=== PATIENT | female | born 1990 | race American Indian/Alaskan Native ===

== ENCOUNTER 2017-02-09 09:44 | Emergency (ER) | payer MEDICAID ==
[2017-02-09 09:55] VITALS: BP 149/78
[2017-02-09] MEDS ORDERED: TETRACAINE 0.5% OU ONE (10:44)
[2017-02-09] MEDS ORDERED: FUL-GLO OP ONE (10:44)
[2017-02-09] MEDS ORDERED: NORCO 5/325 PO ONE (11:01)
--- NOTE | 2017-02-09 13:04 | Emergency Department Report ---
Entered by DAYRON OCONNOR, acting as scribe for CHELITA HUIZAR NP. ED Eye Problem HPI - General Chief complaint: Eye Problems Stated complaint: POSS PINK EYE/BOTH EYES/HEADACHE Time Seen by Provider: 02/09/17 10:43 Source: patient Mode of arrival: Ambulatory Limitations: No Limitations - History of Present Illness Initial comments: 26 y/o female with no significant PMHx c/o right eye redness that began 1 week ago. Patient states that she was at home during onset of symptoms. Patient states her right eye is aggravated with light exposure and alleviated with darkness. Patient reports associated symptoms right eye blurry vision, watery discharge, bilateral "heavy" eye pain, rhinorrhea, and headache, but she denies any eye injury/trauma, nausea, vomiting, fever, and chills. Rates pain a 7/10 in severity. Patient states that she took out her disposable, prescribed contacts out 2 days ago, which she had in for 4 weeks. Patient states the contacts she wears usually lasts for 2 weeks and she is able to sleep in them. She works at a warehouse, but she denies any injuries or foreign substances getting into her eyes. Patient states that the eye redness radiated back and forth from right eye to left eye over the past week, but the left eye redness was relieved with OTC eye drops. Allergic to iodine. MD chief complaint: eye pain (bilaterally), eye redness (right), vision change ( blurry right eye vision) Onset/Timin -: week(s) Onset Description: unknown Location: right eye, left eye Place: home If Injury: none Eye Symptoms: redness, pain, discharge (watery), blurry vision (right eye) Severity: moderate Severity scale (0 -10): 7 If Pain, Quality: other (heavy) Consistency: constant Associated Symptoms: headache, rhinorrhea. denies: neck pain, nausea/vomiting, cough, fever, shortness of breath Treatments Prior to Arrival: OTC eye drops - Related Data Patient Tetanus UTD: Yes Previous Rx's Medication Instructions Recorded Last Taken Type Ibuprofen [Motrin 600 MG tab] 600 mg PO Q8H PRN #30 tablet 10/06/16 Unknown Rx Multivitamin with Iron 1 each PO DAILY #30 tablet 10/06/16 Unknown Rx [Multivitamins with Iron] oxyCODONE /ACETAMINOPHEN [Percocet 1 tab PO Q6HR PRN #30 tablet 10/06/16 Unknown Rx 5/325] Acetaminophen/Codeine [Tylenol #3] 1 tab PO Q6H PRN #12 tab 02/09/17 Unknown Rx Erythromycin [Erythromycin Ophth 1 cm OU QID 7 Days 02/09/17 Unknown Rx Oint] Ibuprofen [Motrin] 600 mg PO Q8H PRN #15 tablet 02/09/17 Unknown Rx Allergies Allergy/AdvReac Type Severity Reaction Status Date / Time iodine Allergy Hives Verified 10/06/16 12:37 ED Review of Systems Comment: All other systems reviewed and negative Constitutional: denies: chills, fever, weakness Eyes: eye pain (bilaterally), eye discharge (watery right eye), vision change ( blurry right eye vision) ENT: other (rhinorrhea) Respiratory: denies: cough, orthopnea, shortness of breath, wheezing Cardiovascular: denies: chest pain, palpitations Gastrointestinal: denies: abdominal pain, nausea, vomiting Musculoskeletal: denies: back pain, joint swelling, arthralgia, myalgia Skin: denies: rash, lesions Neurological: headache. denies: weakness, numbness ED Past Medical Hx - Past Medical History Previous Medical History?: No Hx Hypertension: No Hx Congestive Heart Failure: No Hx Diabetes: No Hx Deep Vein Thrombosis: No Hx Renal Disease: No Hx Sickle Cell Disease: No Hx Seizures: No Hx Asthma: No Hx HIV: No - Surgical History Past Surgical History?: Yes Additional Surgical History: - Social History Smoking Status: Former Smoker Substance Use Type: None - Medications Home Medications: Home Medications Medication Instructions Recorded Confirmed Last Taken Type Ibuprofen [Motrin 600 MG tab] 600 mg PO Q8H PRN #30 tablet 10/06/16 Unknown Rx Multivitamin with Iron 1 each PO DAILY #30 tablet 10/06/16 Unknown Rx [Multivitamins with Iron] oxyCODONE /ACETAMINOPHEN [Percocet 1 tab PO Q6HR PRN #30 tablet 10/06/16 Unknown Rx 5/325] Acetaminophen/Codeine [Tylenol #3] 1 tab PO Q6H PRN #12 tab 02/09/17 Unknown Rx Erythromycin [Erythromycin Ophth 1 cm OU QID 7 Days 02/09/17 Unknown Rx Oint] Ibuprofen [Motrin] 600 mg PO Q8H PRN #15 tablet 02/09/17 Unknown Rx ED Physical Exam - General Limitations: No Limitations General appearance: alert, in no apparent distress, obese - Head Head exam: Present: atraumatic, normocephalic - Eye Eye exam: Present: PERRL, EOMI, conjunctival injection (R ), other (2 corneal abrasions over the right pupil and 1 corneal abrasion to left eye at 5 o'clock in position). Absent: nystagmus Pupils: Present: normal accommodation - Expanded Eye Exam Expanded Pupils: Regular, Round: Bilateral Sclera/Conjunctival: Injection: Right Visual acuity (R) = 20/: 20 Visual acuity (L) = 20/: 40 With correction: Yes - ENT ENT exam: Present: normal exam, mucous membranes moist, normal external ear exam - Neck Neck exam: Present: normal inspection, full ROM. Absent: tenderness, lymphadenopathy - Respiratory Respiratory exam: Present: normal lung sounds bilaterally. Absent: respiratory distress, wheezes, rales, rhonchi, stridor - Cardiovascular Cardiovascular Exam: Present: regular rate, normal rhythm. Absent: systolic murmur, diastolic murmur, rubs, gallop - GI/Abdominal GI/Abdominal exam: Present: soft, normal bowel sounds - Extremities Exam Extremities exam: Present: normal inspection, full ROM - Back Exam Back exam: Present: normal inspection - Neurological Exam Neurological exam: Present: alert, oriented X3 - Psychiatric Psychiatric exam: Present: normal affect, normal mood - Skin Skin exam: Present: warm, dry, intact. Absent: rash ED Course Vital Signs 02/09/17 09:48 Temperature 98.2 F Pulse Rate 85 Respiratory 16 Rate Blood Pressure 149/78 O2 Sat by Pulse 98 Oximetry - Reevaluation(s) Reevaluation #1: 02/09/17 12:44 PT aware of abnormal findings on wood's lamp exam and need for close follow up with her eye doctor. PT advised not to wear contacts at this time. PT verbalizes understanding. - Eye Procedure Alcaine Drops Administered: Yes Eye FB Removal: other (no fb seen ) Progress: zee eyes examined s/p tetracaine instilled and fluorescine placement, pt has zee corneal abrasions, no fb seen - Pulse Oximetry Interpretation Digit-Finger Initial Pulse Oximetry Readin Actions Taken: none ED Medical Decision Making - Differential Diagnosis conjunctivitis, corneal abrasion Critical Care Time: No ED Disposition Clinical Impression: Corneal abrasion of both eyes Qualifiers: Encounter type: initial encounter Qualified Code(s): S05.01XA - Injury of conjunctiva and corneal abrasion without foreign body, right eye, initial encounter; S05.02XA - Injury of conjunctiva and corneal abrasion without foreign body, left eye, initial encounter Disposition: TO HOME OR SELFCARE Is pt being admited?: No Does the pt Need Aspirin: No Condition: Stable Instructions: Corneal Abrasion (ED) Additional Instructions: no driving or ETOH after taking Tylenol #3 Follow up with your eye doctor in the next 2-3 days Follow up with PCP for bp recheck in the next 3-5 days Prescriptions: Acetaminophen/Codeine [Tylenol #3] 1 tab PO Q6H PRN #12 tab PRN Reason: Pain , Severe (7-10) Erythromycin [Erythromycin Ophth Oint] 1 cm OU QID 7 Days Ibuprofen [Motrin] 600 mg PO Q8H PRN #15 tablet PRN Reason: Pain Referrals: [facility] [Outside] - 3-5 Days ONEYDA RICCI MD [Staff Physician] - 3-5 Days [facility], [Primary Care Provider] - 3-5 Days BRIAN HADDAD MD [Staff Physician] - 3-5 Days Forms: Work/School Release Form(ED) Time of Disposition: 12:52 This documentation as recorded by the ANASTASIA fischer JASMINE,accurately reflects the service I personally performed and the decisions made by ,CHELITA HUIZAR, MARIA EUGENIA.
== END 2017-02-09 13:09 | disposition home or self-care (01) ==
LOC: ED 09:44
DX: S05.02XA Injury of conjunctiva and corneal abrasion without foreign body, left eye, initial encounter (principal); S05.01XA Injury of conjunctiva and corneal abrasion without foreign body, right eye, initial encounter; Z98.890 Other specified postprocedural states; Z87.891 Personal history of nicotine dependence; Z91.041 Radiographic dye allergy status; X58.XXXA Exposure to other specified factors, initial encounter; Y93.89 Activity, other specified; Y99.8 Other external cause status; Y92.009 Unspecified place in unspecified non-institutional (private) residence as the place of occurrence of the external cause
CPT/HCPCS: 99283

== ENCOUNTER 2018-01-25 13:19 | Emergency (ER) | payer SELFPAY ==
[2018-01-25 14:22] VITALS: BP 142/67
[2018-01-25] MEDS ORDERED: VALIUM PO ONE (21:06)
[2018-01-25] MEDS ORDERED: TORADOL IM ONE (21:06)
--- NOTE | 2018-01-25 21:07 | Emergency Department Report ---
ED Neck Pain/Injury HPI - General Chief Complaint: Neck Pain/Injury Stated Complaint: NECK PAIN Time Seen by Provider: 01/25/18 20:24 Mode of arrival: Ambulatory Limitations: No Limitations - History of Present Illness Initial Comments: 27-year-old female past medical history obesity presents with complaint of pain and right side lateral neck which started earlier today. Patient states she was stretching and felt that she strained right upper neck muscle. Patient has felt stiffness in her neck. Denies fevers chills nausea vomiting headache blurry vision chest pain shortness of breath. Specifically feels worse when she palpates her right upper neck/shoulder region. Denies any swelling of skin or shoulder. She is ambulatory without assistance. Has not taken anything for the pain. States it is only worse when she turns her head to the right laterally or tilted to the right laterally. MD Complaint: neck pain - Related Data Previous Rx's Medication Instructions Recorded Last Taken Type Ibuprofen [Motrin 600 MG tab] 600 mg PO Q8H PRN #30 tablet 10/06/16 Unknown Rx Multivitamin with Iron 1 each PO DAILY #30 tablet 10/06/16 Unknown Rx [Multivitamins with Iron] oxyCODONE /ACETAMINOPHEN [Percocet 1 tab PO Q6HR PRN #30 tablet 10/06/16 Unknown Rx 5/325] Acetaminophen/Codeine [Tylenol #3] 1 tab PO Q6H PRN #12 tab 02/09/17 Unknown Rx Erythromycin [Erythromycin Ophth 1 cm OU QID 7 Days tube 02/09/17 Unknown Rx Oint] Ibuprofen [Motrin] 600 mg PO Q8H PRN #15 tablet 02/09/17 Unknown Rx Cyclobenzaprine [Flexeril] 10 mg PO TID PRN #12 tablet 01/25/18 Unknown Rx Ibuprofen [Motrin] 800 mg PO Q8HR PRN #25 tablet 01/25/18 Unknown Rx Allergies Allergy/AdvReac Type Severity Reaction Status Date / Time iodine Allergy Hives Verified 10/06/16 12:37 ED Review of Systems ROS: Stated complaint: NECK PAIN Other details as noted in HPI ED Past Medical Hx - Past Medical History Previous Medical History?: Yes Hx Hypertension: No Hx Congestive Heart Failure: No Hx Diabetes: No Hx Deep Vein Thrombosis: No Hx Renal Disease: No Hx Sickle Cell Disease: No Hx Seizures: No Hx Asthma: No Hx HIV: No Additional medical history: Vaginal dleivery x 2 - Surgical History Additional Surgical History: x 1 - Social History Smoking Status: Former Smoker Substance Use Type: Alcohol - Medications Home Medications: Home Medications Medication Instructions Recorded Confirmed Last Taken Type Ibuprofen [Motrin 600 MG tab] 600 mg PO Q8H PRN #30 tablet 10/06/16 Unknown Rx Multivitamin with Iron 1 each PO DAILY #30 tablet 10/06/16 Unknown Rx [Multivitamins with Iron] oxyCODONE /ACETAMINOPHEN [Percocet 1 tab PO Q6HR PRN #30 tablet 10/06/16 Unknown Rx 5/325] Acetaminophen/Codeine [Tylenol #3] 1 tab PO Q6H PRN #12 tab 02/09/17 Unknown Rx Erythromycin [Erythromycin Ophth 1 cm OU QID 7 Days tube 02/09/17 Unknown Rx Oint] Ibuprofen [Motrin] 600 mg PO Q8H PRN #15 tablet 02/09/17 Unknown Rx Cyclobenzaprine [Flexeril] 10 mg PO TID PRN #12 tablet 01/25/18 Unknown Rx Ibuprofen [Motrin] 800 mg PO Q8HR PRN #25 tablet 01/25/18 Unknown Rx ED Physical Exam - General Limitations: No Limitations General appearance: alert, in no apparent distress - Head Head exam: Present: atraumatic, normocephalic - Eye Eye exam: Present: normal appearance, PERRL, EOMI - ENT ENT exam: Present: mucous membranes moist - Neck Neck exam: Present: normal inspection, tenderness (light right upper trapezius discomfort), full ROM (neck flexion and extension is intact lateral rotation slightly limited to the right foot lateral rotation to the left) - Respiratory Respiratory exam: Present: normal lung sounds bilaterally. Absent: respiratory distress - Cardiovascular Cardiovascular Exam: Present: regular rate, normal rhythm. Absent: systolic murmur, diastolic murmur, rubs, gallop - GI/Abdominal GI/Abdominal exam: Present: soft, normal bowel sounds - Extremities Exam Extremities exam: Present: normal inspection - Expanded Upper Extremity Exam Right Shoulder Exam: Present: normal inspection, full ROM Upper Arm exam: Present: normal inspection, full ROM Elbow exam: Present: normal inspection, full ROM Forearm Wrist exam: Present: normal inspection, full ROM Hand Wrist exam: Present: normal inspection, full ROM Neuro motor exam: Present: wrist extension intact, thumb opposition intact, thumb adduction intact, fingers 2-5 abduction intact Neurosensory exam: Present: 2-point discrimination, ulnar nerve intact, median nerve intact Vascular: Present: normal capillary refill, radial pulse, brachial pulse, ulnar pulse - Back Exam Back exam: Present: normal inspection - Neurological Exam Neurological exam: Present: alert, oriented X3, CN II-XII intact, normal gait - Expanded Neurological Exam Expanded Patient oriented to: Present: person, place, time Cranial nerves: EOM's Intact: Normal, Facial Sensation: Normal Cerebellar function: Finger to Nose: Normal, Heel to Mas: Normal, Romberg: Normal Sensory exam: Upper Extremity Light Touch: Normal, Lower Extremity Light Touch: Normal Motor strength exam: RUE: 5, LUE: 5, RLE: 5, LLE: 5 Best Eye Response ([place]): (4) open spontaneously Best Motor Response ([place]): (6) obeys commands Best Verbal Response ([place]): (5) oriented [place] Total: 15 - Psychiatric Psychiatric exam: Present: normal affect, normal mood - Skin Skin exam: Present: warm, dry, intact, normal color. Absent: rash ED Course Vital Signs 01/25/18 01/25/18 14:15 21:16 Temperature 98.1 F Pulse Rate 73 Respiratory 22 18 Rate Blood Pressure 142/67 O2 Sat by Pulse 98 Oximetry ED Medical Decision Making - Medical Decision Making A/P: Torticollis, right upper trapezius sprain 1-no bruit on carotid auscultation, no neurological deficits on exam. X-ray unremarkable. No meningismus no photophobia phonophobia 2-vital signs within normal limits 3-patient feels better with muscle relaxants and anti-inflammatories. Range of motion is preserved 4- f/u primary care doctor Critical care attestation.: If time is entered above; I have spent that time in minutes in the direct care of this critically ill patient, excluding procedure time. ED Disposition Clinical Impression: Neck sprain Qualifiers: Encounter type: initial encounter Qualified Code(s): S13.9XXA - Sprain of joints and ligaments of unspecified parts of neck, initial encounter Disposition: TO HOME OR SELFCARE Is pt being admited?: No Does the pt Need Aspirin: No Condition: Stable Instructions: Spasmodic Torticollis (ED), Cervical Sprain (ED), Muscle Spasm ( ED) Prescriptions: Cyclobenzaprine [Flexeril] 10 mg PO TID PRN #12 tablet PRN Reason: Muscle Spasm Ibuprofen [Motrin] 800 mg PO Q8HR PRN #25 tablet PRN Reason: Pain Referrals: [facility] [Provider Group] - 3-5 Days Forms: Work/School Release Form(ED) Time of Disposition: 23:12
--- NOTE | 2018-01-25 21:45 | XRay Report ---
FINAL REPORT PROCEDURE: XR SPINE CERVICAL 2-3V TECHNIQUE: Cervical spine radiographs, AP and lateral projections. CPT 55074 HISTORY: neck pain COMPARISON: No prior studies are available for comparison. FINDINGS: C7 and T1 are not well visualized. Prevertebral soft tissues: Normal. Alignment: There straightening of the cervical spine.. Vertebral body heights/Disk spaces: Normal. Fracture(s): None. Facets: Normal. Bone mineralization: Normal. IMPRESSION: Straightening of the cervical spine is most likely secondary to spasm. C7 and T1 are not well visualized. Rest of the spine is otherwise unremarkable.
[2018-01-25] MEDS ORDERED: NORCO 10/325 PO ONE (22:41)
[2018-01-25] MEDS ORDERED: NORCO 5/325 PO ONE (22:41)
== END 2018-01-25 23:23 | disposition home or self-care (01) ==
LOC: ED 13:19
DX: S13.9XXA Sprain of joints and ligaments of unspecified parts of neck, initial encounter (principal); Z87.891 Personal history of nicotine dependence; Z91.041 Radiographic dye allergy status; X58.XXXA Exposure to other specified factors, initial encounter; Y93.89 Activity, other specified; Y99.8 Other external cause status; Y92.89 Other specified places as the place of occurrence of the external cause
CPT/HCPCS: 72040; 96372; 99283; J1885

== ENCOUNTER 2019-01-21 22:28 | Emergency (ER) | payer SELFPAY ==
[2019-01-21 22:37] VITALS: BP 149/65
--- NOTE | 2019-01-21 22:40 | Emergency Department Report ---
Blank Doc - Documentation Documentation: 28 y o female presents to Ed cc of itching and burning rash to neck and chest x 2 weeks states rash is getting worse and she has tried creams with no relief ACC jagdeepal
[2019-01-21] MEDS ORDERED: BENADRYL PO ONE (22:51)
[2019-01-21] MEDS ORDERED: DECADRON IM ONE (22:51)
[2019-01-21] MEDS ORDERED: PEPCID PO ONE (22:51)
--- NOTE | 2019-01-21 22:54 | Emergency Department Report ---
ED Rash HPI - HPI Chief Complaint: Skin Rash Stated Complaint: RASH ON NECK Time Seen by Provider: 01/21/19 22:33 Location: Neck Suspected Cause: Unknown Rash Symptoms: Yes Itching, No Facial Swelling, No Tongue/Oral Swelling, No Breathing Difficulties, No Choking Sensation, No Wheezing/Dyspnea, No Peeling, No Blistering, No Fever, No Lightheaded, No Malaise, No Myalgias Severity: mild Other History: She is a 28-year-old -[place] female who comes in with a rash on her anterior chest for several weeks. She has not been able to identify anything that is making it better or worse. It is nonspecific rash difficult to differentiate given the topicals and [id number] meds she's been using. It crosses midline and appears to be distributed in an area where folds of obesity would play a role. She is afebrile with no systemic symptoms. She states that it itches. There are no open areas or infectious appearing areas ED Review of Systems ROS: Stated complaint: RASH ON NECK Other details as noted in HPI Comment: All other systems reviewed and negative ED Past Medical Hx - Past Medical History Hx Hypertension: No Hx Congestive Heart Failure: No Hx Diabetes: No Hx Deep Vein Thrombosis: No Hx Renal Disease: No Hx Sickle Cell Disease: No Hx Seizures: No Hx Asthma: No Hx HIV: No Additional medical history: Vaginal dleivery x 2 - Surgical History Additional Surgical History: x 1 - Social History Smoking Status: Former Smoker Substance Use Type: Alcohol - Medications Home Medications: Home Medications Medication Instructions Recorded Confirmed Last Taken Type Ibuprofen [Motrin 600 MG tab] 600 mg PO Q8H PRN #30 tablet 10/06/16 Unknown Rx Multivitamin with Iron 1 each PO DAILY #30 tablet 10/06/16 Unknown Rx [Multivitamins with Iron] oxyCODONE /ACETAMINOPHEN [Percocet 1 tab PO Q6HR PRN #30 tablet 10/06/16 Unknown Rx 5/325] Acetaminophen/Codeine [Tylenol #3] 1 tab PO Q6H PRN #12 tab 02/09/17 Unknown Rx Erythromycin [Erythromycin Ophth 1 cm OU QID 7 Days tube 02/09/17 Unknown Rx Oint] Ibuprofen [Motrin] 600 mg PO Q8H PRN #15 tablet 02/09/17 Unknown Rx Cyclobenzaprine [Flexeril] 10 mg PO TID PRN #12 tablet 01/25/18 Unknown Rx Ibuprofen [Motrin] 800 mg PO Q8HR PRN #25 tablet 01/25/18 Unknown Rx Cetirizine HCl [ZyrTEC] 10 mg PO DAILY #30 capsule 01/21/19 Unknown Rx diphenhydrAMINE [Benadryl CAP] 25 mg PO Q8HR PRN #20 capsule 01/21/19 Unknown Rx predniSONE [Deltasone] 20 mg PO DAILY #5 tablet 01/21/19 Unknown Rx Rash Exam - Exam General: Vital signs noted. No distress. Alert and acting appropriately. HEENT: No Periorbital Edema, No Conjuctival Injection Lungs: Yes Good Air Exchange, No Wheezes Heart: Yes Regular, No Murmur Skin: Yes Maculopapular Rash, No Urticarial Rash Other: Positive: Abdomen Normal, Neurologic Normal, Musculoskeletal Normal ED Course Vital Signs 01/21/19 22:35 Temperature 98.3 F Pulse Rate 86 Respiratory 18 Rate Blood Pressure 149/65 O2 Sat by Pulse 98 Oximetry ED Medical Decision Making - Medical Decision Making SIMPLE RASH NO FEVER ABC INTACT HAS HAD FOR WEEKS ITCHING OTC MEDS NOT WORKING TO SOOTHE NO SYSTEMIC SYMPTOMS DISCUSSED DERM MD WITH PT FOR DEFINITIVE DIAGNOSIS Vital Signs 01/21/19 22:35 Temperature 98.3 F Pulse Rate 86 Respiratory 18 Rate Blood Pressure 149/65 O2 Sat by Pulse 98 Oximetry Critical care attestation.: If time is entered above; I have spent that time in minutes in the direct care of this critically ill patient, excluding procedure time. ED Disposition Clinical Impression: Rash and nonspecific skin eruption Disposition: DC-01 TO HOME OR SELFCARE Is pt being admited?: No Does the pt Need Aspirin: No Condition: Stable Instructions: Acute Rash (ED) Additional Instructions: DIET TOLERATED MEDS ORDERED TODAY IN ER FOLLOW INSTRUCTIONS ON THE BOTTLE FOLLOW UP PCP WITHIN 48 HOURS TO ENSURE YOU ARE GETTING BETTER ACTIVITY TOLERATED MOTRIN OR TYLENOL FOR PAIN OR FEVER RETURN TO THE ER FOR WORSENING SYMPTOMS NOT RELIEVED BY YOUR MEDICATIONS. Prescriptions: diphenhydrAMINE [Benadryl CAP] 25 mg PO Q8HR PRN #20 capsule PRN Reason: Itching predniSONE [Deltasone] 20 mg PO DAILY #5 tablet Cetirizine HCl [ZyrTEC] 10 mg PO DAILY #30 capsule Referrals: PRAFUL TELLES MD [Referring] - 3-5 Days Time of Disposition: 22:52
== END 2019-01-21 23:31 | disposition home or self-care (01) ==
LOC: ED 22:28
DX: R21 Rash and other nonspecific skin eruption (principal); Z87.891 Personal history of nicotine dependence; Z91.041 Radiographic dye allergy status
CPT/HCPCS: 96372; 99282; J1100

== ENCOUNTER 2019-01-25 18:07 | Emergency (ER) | payer SELFPAY ==
--- NOTE | 2019-01-25 19:33 | Emergency Department Report ---
ED ENT HPI - General Chief complaint: Dental/Oral Stated complaint: (L) SIDE EAR/TOOTH/FACE PAIN Time Seen by Provider: 01/25/19 19:29 Source: patient Mode of arrival: Ambulatory Limitations: No Limitations - History of Present Illness Initial comments: pt presents to the ED with c/o left sided dental pain that began two years ago intermittently. Pt has not seen a dentist in 5 years. Pt states she has known cavities and has had fillings fall out. pt denies any PMHx. Pt only allergy is to seafood. Pt has noticed mild edema to the left side of the face. Pt denies denies any fever. [facility] January 05. - Related Data Previous Rx's Medication Instructions Recorded Last Taken Type Ibuprofen [Motrin 600 MG tab] 600 mg PO Q8H PRN #30 tablet 10/06/16 Unknown Rx Multivitamin with Iron 1 each PO DAILY #30 tablet 10/06/16 Unknown Rx [Multivitamins with Iron] oxyCODONE /ACETAMINOPHEN [Percocet 1 tab PO Q6HR PRN #30 tablet 10/06/16 Unknown Rx 5/325] Erythromycin [Erythromycin Ophth 1 cm OU QID 7 Days tube 02/09/17 Unknown Rx Oint] Cyclobenzaprine [Flexeril] 10 mg PO TID PRN #12 tablet 01/25/18 Unknown Rx Ibuprofen [Motrin] 800 mg PO Q8HR PRN #25 tablet 01/25/18 Unknown Rx Cetirizine HCl [ZyrTEC] 10 mg PO DAILY #30 capsule 01/21/19 Unknown Rx diphenhydrAMINE [Benadryl CAP] 25 mg PO Q8HR PRN #20 capsule 01/21/19 Unknown Rx predniSONE [Deltasone] 20 mg PO DAILY #5 tablet 01/21/19 Unknown Rx Acetaminophen/Codeine [Tylenol 1 tab PO Q6H PRN #10 tab 01/25/19 Unknown Rx /Codeine # 3 tab] Ibuprofen [Motrin 600 MG tab] 600 mg PO Q8H PRN #15 tablet 01/25/19 Unknown Rx Penicillin Vk [Veetids TAB] 500 mg PO QID 7 Days #56 tablet 01/25/19 Unknown Rx Allergies Allergy/AdvReac Type Severity Reaction Status Date / Time iodine Allergy Hives Verified 01/25/19 18:11 ED Dental HPI - General Chief complaint: Dental/Oral Stated complaint: (L) SIDE EAR/TOOTH/FACE PAIN Time Seen by Provider: 01/25/19 19:29 Source: patient Mode of arrival: Ambulatory Limitations: No Limitations - Related Data Previous Rx's Medication Instructions Recorded Last Taken Type Ibuprofen [Motrin 600 MG tab] 600 mg PO Q8H PRN #30 tablet 10/06/16 Unknown Rx Multivitamin with Iron 1 each PO DAILY #30 tablet 10/06/16 Unknown Rx [Multivitamins with Iron] oxyCODONE /ACETAMINOPHEN [Percocet 1 tab PO Q6HR PRN #30 tablet 10/06/16 Unknown Rx 5/325] Erythromycin [Erythromycin Ophth 1 cm OU QID 7 Days tube 02/09/17 Unknown Rx Oint] Cyclobenzaprine [Flexeril] 10 mg PO TID PRN #12 tablet 01/25/18 Unknown Rx Ibuprofen [Motrin] 800 mg PO Q8HR PRN #25 tablet 01/25/18 Unknown Rx Cetirizine HCl [ZyrTEC] 10 mg PO DAILY #30 capsule 01/21/19 Unknown Rx diphenhydrAMINE [Benadryl CAP] 25 mg PO Q8HR PRN #20 capsule 01/21/19 Unknown Rx predniSONE [Deltasone] 20 mg PO DAILY #5 tablet 01/21/19 Unknown Rx Acetaminophen/Codeine [Tylenol 1 tab PO Q6H PRN #10 tab 01/25/19 Unknown Rx /Codeine # 3 tab] Ibuprofen [Motrin 600 MG tab] 600 mg PO Q8H PRN #15 tablet 01/25/19 Unknown Rx Penicillin Vk [Veetids TAB] 500 mg PO QID 7 Days #56 tablet 01/25/19 Unknown Rx Allergies Allergy/AdvReac Type Severity Reaction Status Date / Time iodine Allergy Hives Verified 01/25/19 18:11 ED Review of Systems ROS: Stated complaint: (L) SIDE EAR/TOOTH/FACE PAIN Other details as noted in HPI Comment: All other systems reviewed and negative ED Past Medical Hx - Past Medical History Hx Hypertension: No Hx Congestive Heart Failure: No Hx Diabetes: No Hx Deep Vein Thrombosis: No Hx Renal Disease: No Hx Sickle Cell Disease: No Hx Seizures: No Hx Asthma: No Hx HIV: No Additional medical history: Vaginal dleivery x 2 - Surgical History Additional Surgical History: x 1 - Social History Smoking Status: Never Smoker Substance Use Type: None - Medications Home Medications: Home Medications Medication Instructions Recorded Confirmed Last Taken Type Ibuprofen [Motrin 600 MG tab] 600 mg PO Q8H PRN #30 tablet 10/06/16 Unknown Rx Multivitamin with Iron 1 each PO DAILY #30 tablet 10/06/16 Unknown Rx [Multivitamins with Iron] oxyCODONE /ACETAMINOPHEN [Percocet 1 tab PO Q6HR PRN #30 tablet 10/06/16 Unknown Rx 5/325] Erythromycin [Erythromycin Ophth 1 cm OU QID 7 Days tube 02/09/17 Unknown Rx Oint] Cyclobenzaprine [Flexeril] 10 mg PO TID PRN #12 tablet 01/25/18 Unknown Rx Ibuprofen [Motrin] 800 mg PO Q8HR PRN #25 tablet 01/25/18 Unknown Rx Cetirizine HCl [ZyrTEC] 10 mg PO DAILY #30 capsule 01/21/19 Unknown Rx diphenhydrAMINE [Benadryl CAP] 25 mg PO Q8HR PRN #20 capsule 01/21/19 Unknown Rx predniSONE [Deltasone] 20 mg PO DAILY #5 tablet 01/21/19 Unknown Rx Acetaminophen/Codeine [Tylenol 1 tab PO Q6H PRN #10 tab 01/25/19 Unknown Rx /Codeine # 3 tab] Ibuprofen [Motrin 600 MG tab] 600 mg PO Q8H PRN #15 tablet 01/25/19 Unknown Rx Penicillin Vk [Veetids TAB] 500 mg PO QID 7 Days #56 tablet 01/25/19 Unknown Rx ED Physical Exam - General Limitations: No Limitations General appearance: alert, in no apparent distress - Head Head exam: Present: atraumatic, normocephalic - Eye Eye exam: Present: normal appearance, PERRL - ENT ENT exam: Present: normal orophraynx, mucous membranes moist, other (poor dentition, pt has partially cracked teeth on the left upper, left lower, and right upper, pt has necrotic tissue on the left upper, no obvious induration, fluctuance, or erythema of the gums, uvula is midline, no uvula edema) - Respiratory Respiratory exam: Absent: respiratory distress - Neurological Exam Neurological exam: Present: alert, oriented X3 - Psychiatric Psychiatric exam: Present: normal affect, normal mood - Skin Skin exam: Present: warm, dry, intact ED Course Vital Signs 01/25/19 19:30 Temperature 97.9 F Pulse Rate 66 Respiratory 18 Rate Blood Pressure 160/88 O2 Sat by Pulse 99 Oximetry ED Medical Decision Making - Medical Decision Making pt presents to the ED with c/o left sided dental pain that began two years ago intermittently. Pt has not seen a dentist in 5 years. Pt states she has known cavities and has had fillings fall out. pt denies any PMHx. Pt only allergy is to seafood. Pt has noticed mild edema to the left side of the face. Pt denies denies any fever. [facility] January 05. pt is afebrile, no tachycardia. on exam: poor dentition, pt has partially cracked teeth on the left upper, left lower, and right upper, pt has necrotic tissue on the left upper, no obvious induration, fluctuance, or erythema of the gums, uvula is midline, no uvula edema. no obvious dental abscess identified. pt given abx, pain medication, and anti- inflammatory. discussed to please take all medication as prescribed. please follow up with a dentist in the next 3-5 days. discussed with pt in detail the importance of following up with a dentist. advised to only take pain medication for severe pain and do not drive or operate heavy machinery while taking. return to the emergency room for any new or worsening symptoms. Critical care attestation.: If time is entered above; I have spent that time in minutes in the direct care of this critically ill patient, excluding procedure time. ED Disposition Clinical Impression: Infected dental caries Disposition: TO HOME OR SELFCARE Is pt being admited?: No Does the pt Need Aspirin: No Condition: Stable Instructions: Dental Caries (ED) Additional Instructions: Please take all medication as prescribed. please follow up with a dentist in the next 3-5 days. only take pain medication for severe pain and do not drive or operate heavy machinery while taking. return to the emergency room for any new or worsening symptoms. Prescriptions: Ibuprofen [Motrin 600 MG tab] 600 mg PO Q8H PRN #15 tablet PRN Reason: Pain Acetaminophen/Codeine [Tylenol /Codeine # 3 tab] 1 tab PO Q6H PRN #10 tab PRN Reason: Pain , Severe (7-10) Penicillin Vk [Veetids TAB] 500 mg PO QID 7 Days #56 tablet Referrals: a, dentist [Other] - 3-5 Days Time of Disposition: 19:35 Print Language: GIBRALTARIAN
[2019-01-25 19:34] VITALS: BP 160/88
== END 2019-01-25 20:15 | disposition home or self-care (01) ==
LOC: ED 18:07
DX: K04.7 Periapical abscess without sinus (principal); Z88.8 Allergy status to other drugs, medicaments and biological substances
CPT/HCPCS: 99282

== ENCOUNTER 2019-03-05 04:50 | Emergency (ER) | payer SELFPAY ==
[2019-03-05 05:00] VITALS: BP 138/83
--- NOTE | 2019-03-05 05:26 | XRay Report ---
RIGHT ANKLE, 3 VIEWS 03/05/2019 INDICATION / CLINICAL INFORMATION: pain and swelling to ankle. COMPARISON: None available. FINDINGS: No fracture or dislocation. Signer Name: Ivan Rodgers MD Signed: 03/05/2019 5:21 AM Workstation Name: [id number]
[2019-03-05] MEDS ORDERED: IBUPROFEN PO ONE ×2 (06:10→06:15)
--- NOTE | 2019-03-05 07:26 | Emergency Department Report ---
ED Back Pain/Injury HPI - General Chief Complaint: Extremity Injury, Lower Stated Complaint: RIGHT ANKLE PAIN Time Seen by Provider: 03/05/19 07:23 Source: patient Limitations: No Limitations - Related Data Previous Rx's Medication Instructions Recorded Last Taken Type Ibuprofen [Motrin] 800 mg PO Q8HR PRN #25 tablet 03/05/19 Unknown Rx Allergies Allergy/AdvReac Type Severity Reaction Status Date / Time iodine Allergy Hives Verified 01/25/19 18:11 seafood Allergy Unknown Uncoded 03/05/19 05:01 ED Review of Systems ROS: Stated complaint: RIGHT ANKLE PAIN Other details as noted in HPI Comment: All other systems reviewed and negative ED Past Medical Hx - Past Medical History Medical history: no medical history Vaginal dleivery x 2 Family history: no significant family history ED Back Pain Physical Exam - Exam General: Vital signs noted. No distress. Alert and acting appropriately. WDWN patient in NAD VS per RN flow sheet Alert and oriented to person, place and time. S1-S2. No S3 or S4. No systolic or diastolic murmur. No JVD. No pitting edema. Lungs clear to auscultation bilaterally anteriorly and posteriorly. Abdomen soft nontender bowel sounds x4 full rom ankle but limited w pain; mild lat mal swelling ambulation limited by pain Moves all extremities well. Mood and affect appropriate. ED Course Vital Signs 03/05/19 04:52 Temperature 98.4 F Pulse Rate 88 Respiratory 18 Rate Blood Pressure 138/83 O2 Sat by Pulse 99 Oximetry Ed Back Pain Tests - Tests Tests: Normal X Rays ED Medical Decision Making - Radiology Data Radiology results: report reviewed, image reviewed - Medical Decision Making xray neg ambulation limited with pain neurovasc intact dp pulse plus 2 bilateral will do RICE therapy for 2 days and follow up with Dr Kamran maier home with fl plan of care Vital Signs 03/05/19 04:52 Temperature 98.4 F Pulse Rate 88 Respiratory 18 Rate Blood Pressure 138/83 O2 Sat by Pulse 99 Oximetry Critical care attestation.: If time is entered above; I have spent that time in minutes in the direct care of this critically ill patient, excluding procedure time. ED Disposition Clinical Impression: Ankle sprain Disposition: DC-01 TO HOME OR SELFCARE Is pt being admited?: No Does the pt Need Aspirin: No Condition: Stable Additional Instructions: DIET TOLERATED MEDS ORDERED TODAY IN ER FOLLOW INSTRUCTIONS ON THE BOTTLE FOLLOW UP PCP WITHIN 48 HOURS TO ENSURE YOU ARE GETTING BETTER ACTIVITY TOLERATED MOTRIN OR TYLENOL FOR PAIN OR FEVER RETURN TO THE ER FOR WORSENING SYMPTOMS NOT RELIEVED BY YOUR MEDICATIONS. ICE REST ELEVATE CRUTCHES FOR 48 HOURS THEN FOLLOW UP WITH DR RICHARDS REFERRAL BELOW Referrals: RAVINDRA RICHARDS MD [Staff Physician] - 3-5 Days Time of Disposition: 08:01
[2019-03-05] MEDS ORDERED: NORCO 5/325 PO ONE (07:58)
== END 2019-03-05 09:04 | disposition home or self-care (01) ==
LOC: ED 04:50
DX: S93.401A Sprain of unspecified ligament of right ankle, initial encounter (principal); Z79.1 Long term (current) use of non-steroidal anti-inflammatories (NSAID); Z91.013 Allergy to seafood; Z91.041 Radiographic dye allergy status; W01.198A Fall on same level from slipping, tripping and stumbling with subsequent striking against other object, initial encounter; Y93.89 Activity, other specified; Y92.89 Other specified places as the place of occurrence of the external cause; Y99.8 Other external cause status
CPT/HCPCS: 99284

== ENCOUNTER 2020-01-15 03:47 | Emergency (ER) | payer MEDICAID ==
--- NOTE | 2020-01-15 04:40 | Emergency Department Report ---
ED ENT HPI - General Chief complaint: Dental/Oral Stated complaint: TOOTHACHE SWOLLEN JAW Time Seen by Provider: 01/15/20 04:25 Source: patient Mode of arrival: Ambulatory Limitations: No Limitations - History of Present Illness Initial comments: 21-year-old obese -[place] female resents emerged department complaining of a 2 to 3-day history of left-sided dental pain to the left lower molar region with some swelling to the left mandible region. No fevers, chills, sweats no hemoptysis no hematemesis no odynophagia or dysphasia Location: tooth # Severity: mild, moderate - Related Data Previous Rx's Medication Instructions Recorded Last Taken Type Ibuprofen [Motrin] 800 mg PO Q8HR PRN #25 tablet 03/05/19 Unknown Rx Amoxicillin [Amoxicillin TAB] 875 mg PO BID #20 tablet 01/15/20 Unknown Rx Chlorhexidine Mouthwash [Peridex] 15 ml MM BID #1 bottle 01/15/20 Unknown Rx Ketorolac [Toradol] 10 mg PO Q6H PRN #10 tablet 01/15/20 Unknown Rx Allergies Allergy/AdvReac Type Severity Reaction Status Date / Time iodine Allergy Hives Verified 01/25/19 18:11 seafood Allergy Unknown Uncoded 03/05/19 05:01 ED Dental HPI - General Chief complaint: Dental/Oral Stated complaint: TOOTHACHE SWOLLEN JAW Time Seen by Provider: 01/15/20 04:25 Source: patient Mode of arrival: Ambulatory Limitations: No Limitations - Related Data Previous Rx's Medication Instructions Recorded Last Taken Type Ibuprofen [Motrin] 800 mg PO Q8HR PRN #25 tablet 03/05/19 Unknown Rx Amoxicillin [Amoxicillin TAB] 875 mg PO BID #20 tablet 01/15/20 Unknown Rx Chlorhexidine Mouthwash [Peridex] 15 ml MM BID #1 bottle 01/15/20 Unknown Rx Ketorolac [Toradol] 10 mg PO Q6H PRN #10 tablet 01/15/20 Unknown Rx Allergies Allergy/AdvReac Type Severity Reaction Status Date / Time iodine Allergy Hives Verified 01/25/19 18:11 seafood Allergy Unknown Uncoded 03/05/19 05:01 ED Review of Systems ROS: Stated complaint: TOOTHACHE SWOLLEN JAW Other details as noted in HPI ED Past Medical Hx - Past Medical History Previous Medical History?: Yes Hx Hypertension: No Hx Congestive Heart Failure: No Hx Diabetes: No Hx Deep Vein Thrombosis: No Hx Renal Disease: No Hx Sickle Cell Disease: No Hx Seizures: No Hx Asthma: No Hx HIV: No Additional medical history: Vaginal dleivery x 2 - Surgical History Past Surgical History?: Yes Additional Surgical History: x 1 - Social History Smoking Status: Never Smoker - Medications Home Medications: Home Medications Medication Instructions Recorded Confirmed Last Taken Type Ibuprofen [Motrin] 800 mg PO Q8HR PRN #25 tablet 03/05/19 Unknown Rx Amoxicillin [Amoxicillin TAB] 875 mg PO BID #20 tablet 01/15/20 Unknown Rx Chlorhexidine Mouthwash [Peridex] 15 ml MM BID #1 bottle 01/15/20 Unknown Rx Ketorolac [Toradol] 10 mg PO Q6H PRN #10 tablet 01/15/20 Unknown Rx ED Physical Exam - General Limitations: No Limitations General appearance: alert, in no apparent distress - Head Head exam: Present: atraumatic, normocephalic - Eye Eye exam: Present: normal appearance - ENT ENT exam: Present: mucous membranes moist, other (Tenderness to tooth number 19 with some adjacent gingival erythema mild swelling.) - Neck Neck exam: Present: normal inspection - Respiratory Respiratory exam: Present: normal lung sounds bilaterally. Absent: respiratory distress - Cardiovascular Cardiovascular Exam: Present: regular rate, normal rhythm. Absent: systolic murmur, diastolic murmur, rubs, gallop - GI/Abdominal GI/Abdominal exam: Present: soft, normal bowel sounds - Extremities Exam Extremities exam: Present: normal inspection - Back Exam Back exam: Present: normal inspection - Neurological Exam Neurological exam: Present: alert, oriented X3 - Psychiatric Psychiatric exam: Present: normal affect, normal mood - Skin Skin exam: Present: warm, dry, intact, normal color. Absent: rash Critical care attestation.: If time is entered above; I have spent that time in minutes in the direct care of this critically ill patient, excluding procedure time. ED Disposition Clinical Impression: Dentalgia Disposition: MED SCREENING EXAM-CONT Is pt being admited?: No Does the pt Need Aspirin: No Condition: Stable Instructions: Dental Abscess (ED), Acute dental trauma (ED), Toothache (ED), Dental Caries (ED) Prescriptions: Amoxicillin [Amoxicillin TAB] 875 mg PO BID #20 tablet Chlorhexidine Mouthwash [Peridex] 15 ml MM BID #1 bottle Ketorolac [Toradol] 10 mg PO Q6H PRN #10 tablet PRN Reason: Pain Referrals: PRIMARY CARE,MD [Primary Care Provider] - 3-5 Days [facility] [Outside] - 3-5 Days
[2020-01-15 04:57] VITALS: BP 147/93
== END 2020-01-15 05:04 | disposition home or self-care (01) ==
LOC: ED 03:47
DX: K08.89 Other specified disorders of teeth and supporting structures (principal); Z79.899 Other long term (current) drug therapy; Z98.890 Other specified postprocedural states; Z91.013 Allergy to seafood; Z91.041 Radiographic dye allergy status
CPT/HCPCS: 99282

== ENCOUNTER 2020-01-15 23:46 | Emergency (ER) | payer MEDICAID ==
[2020-01-15 23:51] VITALS: BP 136/72
[2020-01-16] MEDS ORDERED: IBUPROFEN 800 MG TAB PO ONE (01:12)
[2020-01-16] MEDS ORDERED: LIDOCAINE-MPF (1%) 10 MG/1 ML VIAL 5 ML INFILTRATI ONE (01:12)
--- NOTE | 2020-01-16 01:49 | Emergency Department Report ---
ED ENT HPI - General Chief complaint: Dental/Oral Stated complaint: TOOTHACHE,SWOLLEN JAW Time Seen by Provider: 01/16/20 01:01 Source: patient Mode of arrival: Ambulatory Limitations: No Limitations - History of Present Illness Initial comments: Ms Horta is a 29 y/o aaf who presents for dental pain x x 3 days seen this am for same, tx with abx, nasds, and water scanario, pt states she was unble to see dentist .There has bee no new injury or problem pt is tolerating po itnke . MD complaint: tooth pain Onset/Timin -: days(s) Location: tooth # Severity: moderate Severity scale (0 -10): 10 Quality: burning Consistency: constant Improves with: none Worsens with: none, eating Associated Symptoms: denies: fever - Related Data Previous Rx's Medication Instructions Recorded Last Taken Type Ibuprofen [Motrin] 800 mg PO Q8HR PRN #25 tablet 03/05/19 Unknown Rx Amoxicillin [Amoxicillin TAB] 875 mg PO BID #20 tablet 01/15/20 Unknown Rx Chlorhexidine Mouthwash [Peridex] 15 ml MM BID #1 bottle 01/15/20 Unknown Rx Ketorolac [Toradol] 10 mg PO Q6H PRN #10 tablet 01/15/20 Unknown Rx Allergies Allergy/AdvReac Type Severity Reaction Status Date / Time iodine Allergy Hives Verified 01/25/19 18:11 seafood Allergy Unknown Uncoded 03/05/19 05:01 ED Dental HPI - General Chief complaint: Dental/Oral Stated complaint: TOOTHACHE,SWOLLEN JAW Time Seen by Provider: 01/16/20 01:01 Source: patient Mode of arrival: Ambulatory Limitations: No Limitations - History of Present Illness Initial comments: dental pain MD complaint: tooth pain Onset/Timin -: week(s) Severity: moderate Quality: aching Consistency: constant Improves with: none Worsens with: eating - Related Data Previous Rx's Medication Instructions Recorded Last Taken Type Ibuprofen [Motrin] 800 mg PO Q8HR PRN #25 tablet 03/05/19 Unknown Rx Amoxicillin [Amoxicillin TAB] 875 mg PO BID #20 tablet 01/15/20 Unknown Rx Chlorhexidine Mouthwash [Peridex] 15 ml MM BID #1 bottle 01/15/20 Unknown Rx Ketorolac [Toradol] 10 mg PO Q6H PRN #10 tablet 01/15/20 Unknown Rx Allergies Allergy/AdvReac Type Severity Reaction Status Date / Time iodine Allergy Hives Verified 01/25/19 18:11 seafood Allergy Unknown Uncoded 03/05/19 05:01 ED Review of Systems ROS: Stated complaint: TOOTHACHE,SWOLLEN JAW Other details as noted in HPI Constitutional: denies: chills, fever Eyes: denies: eye pain, eye discharge, vision change ENT: dental pain Respiratory: denies: cough, shortness of breath, wheezing Cardiovascular: as per HPI, other. denies: chest pain, palpitations, dyspnea on exertion, orthopnea Endocrine: no symptoms reported Gastrointestinal: melena. denies: abdominal pain, nausea, diarrhea Genitourinary: denies: as per HPI, urgency, dysuria, discharge Musculoskeletal: denies: back pain, joint swelling, arthralgia Skin: denies: rash, lesions Neurological: denies: headache, weakness, paresthesias Psychiatric: as per HPI Hematological/Lymphatic: as per HPI ED Past Medical Hx - Past Medical History Hx Hypertension: No Hx Congestive Heart Failure: No Hx Diabetes: No Hx Deep Vein Thrombosis: No Hx Renal Disease: No Hx Sickle Cell Disease: No Hx Seizures: No Hx Asthma: No Hx HIV: No Additional medical history: Vaginal dleivery x 2 - Surgical History Additional Surgical History: x 1 - Social History Smoking Status: Never Smoker Substance Use Type: None - Medications Home Medications: Home Medications Medication Instructions Recorded Confirmed Last Taken Type Ibuprofen [Motrin] 800 mg PO Q8HR PRN #25 tablet 03/05/19 Unknown Rx Amoxicillin [Amoxicillin TAB] 875 mg PO BID #20 tablet 01/15/20 Unknown Rx Chlorhexidine Mouthwash [Peridex] 15 ml MM BID #1 bottle 01/15/20 Unknown Rx Ketorolac [Toradol] 10 mg PO Q6H PRN #10 tablet 01/15/20 Unknown Rx ED Physical Exam - General Limitations: No Limitations General appearance: alert, in no apparent distress - Head Head exam: Present: atraumatic, normocephalic, normal inspection - Eye Eye exam: Present: normal appearance, PERRL, EOMI - ENT ENT exam: Absent: normal orophraynx - Neck Neck exam: Present: normal inspection - Respiratory Respiratory exam: Present: normal lung sounds bilaterally, rales. Absent: respi ratory distress, rhonchi - Cardiovascular Cardiovascular Exam: Present: regular rate, normal rhythm. Absent: systolic murmur, diastolic murmur, rubs, gallop - GI/Abdominal GI/Abdominal exam: Present: soft, normal bowel sounds - Extremities Exam Extremities exam: Present: normal inspection - Back Exam Back exam: Present: normal inspection, full ROM. Absent: tenderness, CVA tenderness (R), CVA tenderness (L) - Neurological Exam Neurological exam: Present: alert, oriented X3 - Psychiatric Psychiatric exam: Present: normal affect, normal mood - Skin Skin exam: Present: warm, dry, intact, normal color. Absent: rash ED Course Vital Signs 01/15/20 23:48 Temperature 98.2 F Pulse Rate 80 Respiratory 18 Rate Blood Pressure 136/72 O2 Sat by Pulse 100 Oximetry ED Medical Decision Making - Medical Decision Making pain improved plan: continue pop abx and pain medications follow up with dentist in 2-3 days . pt verbalized agreement and understanding of same. Critical care attestation.: If time is entered above; I have spent that time in minutes in the direct care of this critically ill patient, excluding procedure time. ED Disposition Clinical Impression: Pain, dental Disposition: DC-01 TO HOME OR SELFCARE Is pt being admited?: No Does the pt Need Aspirin: No Condition: Stable Instructions: Toothache (ED) Referrals: [facility] [Provider Group] - 3-5 Days Forms: Work/School Release Form(ED) Time of Disposition: 02:19
== END 2020-01-16 02:30 | disposition home or self-care (01) ==
LOC: ED 23:46
DX: K08.89 Other specified disorders of teeth and supporting structures (principal); Z79.899 Other long term (current) drug therapy; Z98.890 Other specified postprocedural states; Z91.013 Allergy to seafood; Z91.041 Radiographic dye allergy status
CPT/HCPCS: 96372; 99282; J0696